=== PATIENT | female | born 1985 | race American Indian/Alaskan Native ===

== ENCOUNTER 2025-02-19 17:09 | Inpatient (IN) ==
[2025-02-19] MEDS ORDERED: IOPAMIDOL 100 ML BOTTLE IV ONE (17:10)
[2025-02-19] MEDS: KETOROLAC 30 MG/ML VIAL IV ONE (18:41)
[2025-02-19 18:57] LABS: Basophils # (Auto) 0.05 K/mcL (0.00-0.30); Basophils % (Auto) 0.5 % (0.0-2.0); Eosinophils # (Auto) 0.27 K/mcL (0.00-0.70); Eosinophils % (Auto) 2.6 % (0.0-7.0); Hematocrit 30.3 % (34.1-44.9); Hemoglobin 9.1 g/dL (11.2-15.7); Lymphocytes # (Auto) 2.19 K/mcL (1.50-4.80); Lymphocytes % (Auto) 21.3 % (15.5-49.0); Mean Corpuscular HGB Conc 30.0 g/dL (31.0-36.0); Monocytes # (Auto) 0.56 K/mcL (0.10-0.90); Monocytes % (Auto) 5.4 % (1.0-12.0); Neutrophils % (Auto) 70.1 % (38.0-78.0); Platelet Count 330 K/mcL (140-440); RBC 4.01 M/mcL (3.59-5.38); WBC 10.3 K/mcL (4.5-11.0)
[2025-02-19 19:10] LABS: ALT/SGPT 5 U/L (<40); AST/SGOT 17 U/L (<32); Albumin 3.8 gm/dL (3.2-5.2); Albumin/Globulin Ratio 1.1 (1.0-2.3); Alkaline Phosphatase 64 U/L (39-117); Anion Gap 13.0 (8.0-16.0); Bilirubin,Total 0.3 mg/dL (0.1-1.0); Blood Urea Nitrogen 10 mg/dL (6-20); C-Reactive Protein 6.18 mg/dL (0.03-0.80); Calcium 8.8 mg/dL (8.6-10.4); Carbon Dioxide 21 mmol/L (22-30); Chloride 103 mmol/L (96-108); Globulin 3.5 gm/dL (2.2-3.7); Glucose 103 mg/dL (70-105); Potassium 3.9 mmol/L (3.3-5.1); Sodium 137 mmol/L (133-145)
[2025-02-19 19:11] LABS: HCG,Serum Negative
[2025-02-19] MEDS: VANCOMYCIN 1,500 MG in 0.9 % SODIUM CHLORIDE 500 ML IV ONE (20:02)
[2025-02-19] MEDS: fentaNYL 100 MCG/2 ML VIAL IV ONE (20:02)
[2025-02-19] MEDS: CLINDAMYCIN 150 MG CAPSULE PO ONE (20:50)
[2025-02-19] MEDS ORDERED: ACETAMINOPHEN 325 MG TABLET PO PRN (22:20)
[2025-02-19] MEDS ORDERED: IPRATROPIUM/ALBUTEROL 3 ML AMPUL.NEB NEB PRN (22:20)
[2025-02-19] MEDS ORDERED: ONDANSETRON 4 MG/2 ML VIAL IV PRN (22:20)
[2025-02-19] MEDS: SENNOSIDES 1 TABLET PO SCH (22:36)
[2025-02-19] MEDS: DOCUSATE SODIUM 100 MG CAPSULE PO SCH (22:36)
[2025-02-19] MEDS: 0.9 % SODIUM CHLORIDE 10 ML SYRINGE IV SCH (22:41)
[2025-02-19] MEDS: cefTRIAXone 2 GM in DEXTROSE 5% IN WATER 50 ML IV SCH (23:17)
[2025-02-20 06:45] LABS: Basophils # (Auto) 0.05 K/mcL (0.00-0.30); Basophils % (Auto) 0.6 % (0.0-2.0); Eosinophils # (Auto) 0.43 K/mcL (0.00-0.70); Eosinophils % (Auto) 5.3 % (0.0-7.0); Hematocrit 29.2 % (34.1-44.9); Hemoglobin 8.6 g/dL (11.2-15.7); Lymphocytes # (Auto) 2.40 K/mcL (1.50-4.80); Lymphocytes % (Auto) 29.4 % (15.5-49.0); Mean Corpuscular HGB Conc 29.5 g/dL (31.0-36.0); Monocytes # (Auto) 0.48 K/mcL (0.10-0.90); Monocytes % (Auto) 5.9 % (1.0-12.0); Neutrophils % (Auto) 58.7 % (38.0-78.0); Platelet Count 295 K/mcL (140-440); RBC 3.77 M/mcL (3.59-5.38); WBC 8.2 K/mcL (4.5-11.0)
[2025-02-20 06:51] LABS: Anion Gap 11.0 (8.0-16.0); Blood Urea Nitrogen 11 mg/dL (6-20); Calcium 8.3 mg/dL (8.6-10.4); Carbon Dioxide 22 mmol/L (22-30); Chloride 104 mmol/L (96-108); Glucose 81 mg/dL (70-105); Potassium 3.9 mmol/L (3.3-5.1); Sodium 137 mmol/L (133-145)
[2025-02-20] MEDS: ENOXAPARIN 40 MG/0.4 ML SYRINGE SQ SCH (09:04)
[2025-02-20 16:16] LABS: Iron 26.0 ug/dL (37-145); TIBC Calculation 306.0 ug/dl (228-428); Transferrin % Saturation 8.0 % (15-50)
[2025-02-20 16:22] LABS: Ferritin 14.5 ng/mL (13.0-150.0)
[2025-02-20] MEDS: IRON POLYSACCHARIDE COMPLEX 150 MG CAPSULE PO SCH (17:05)
[2025-02-20 21:07] LABS: Retic Absolute 0.07 M/mcL (0.02-0.10)
[2025-02-21 07:53] LABS: Basophils # (Auto) 0.04 K/mcL (0.00-0.30); Basophils % (Auto) 0.6 % (0.0-2.0); Eosinophils # (Auto) 0.40 K/mcL (0.00-0.70); Eosinophils % (Auto) 6.3 % (0.0-7.0); Hematocrit 29.1 % (34.1-44.9); Hemoglobin 8.8 g/dL (11.2-15.7); Lymphocytes # (Auto) 2.15 K/mcL (1.50-4.80); Lymphocytes % (Auto) 33.9 % (15.5-49.0); Mean Corpuscular HGB Conc 30.2 g/dL (31.0-36.0); Monocytes # (Auto) 0.35 K/mcL (0.10-0.90); Monocytes % (Auto) 5.5 % (1.0-12.0); Neutrophils % (Auto) 53.5 % (38.0-78.0); Platelet Count 320 K/mcL (140-440); RBC 3.85 M/mcL (3.59-5.38); WBC 6.4 K/mcL (4.5-11.0)
[2025-02-21] MEDS: LINEZOLID 600 MG/300 ML BAG IV ONE (10:42)
== END 2025-02-21 15:10 | disposition home or self-care (01) | DRG 918 ==
LOC: ED 17:09 → MEDSUR 22:13
PROVIDERS: ADMIT Internal Medicine; ATTEND Internal Medicine